=== PATIENT | female | born 1945 | race Two or more races ===

== ENCOUNTER 2018-05-30 09:30 | Day surgery (SDC) | payer OTHER | END 2018-05-30 17:50 | disposition home or self-care (01) | LOC: AMB-ENDOS 09:30 | DX: D12.2 Benign neoplasm of ascending colon (principal); K64.1 Second degree hemorrhoids ==

== ENCOUNTER 2018-07-29 10:30 | Inpatient (IN) | payer OTHER | END 2018-08-08 19:03 | disposition home or self-care (01) | DRG 331 | LOC: O/R 08-05 07:00 → SURH 08-05 07:00 | PROVIDERS: Colon & Rectal Surgery | PROC: 07TC4ZZ Resection of Pelvis Lymphatic, Percutaneous Endoscopic Approach (ICD-10-PCS; 2018-08-05) | PROC: 0DBU4ZZ Excision of Omentum, Percutaneous Endoscopic Approach (ICD-10-PCS; 2018-08-05) | PROC: 0DTF4ZZ Resection of Right Large Intestine, Percutaneous Endoscopic Approach (ICD-10-PCS; principal; 2018-08-05 18:00) | DX: D12.0 Benign neoplasm of cecum (principal); D12.2 Benign neoplasm of ascending colon; I13.10 Hypertensive heart and chronic kidney disease without heart failure, with stage 1 through stage 4 chronic kidney disease, or unspecified chronic kidney disease; N18.3 Chronic kidney disease, stage 3 (moderate); J45.20 Mild intermittent asthma, uncomplicated; I25.10 Atherosclerotic heart disease of native coronary artery without angina pectoris; E78.00 Pure hypercholesterolemia, unspecified; Z86.010 Personal history of colon polyps ==

== ENCOUNTER 2019-08-28 10:25 | Day surgery (SDC) | payer OTHER | END 2019-08-28 14:20 | disposition home or self-care (01) | LOC: AMB-ENDOS 10:25 | DX: K57.30 Diverticulosis of large intestine without perforation or abscess without bleeding (principal); K64.1 Second degree hemorrhoids ==